=== PATIENT | male | born 1940 | race Caucasian/White ===

== ENCOUNTER 2018-11-22 09:40 | Emergency (ER) | payer MEDICARE ==
[~2018-11-22] VITALS: Ht 175.3 cm; Wt 121.6 kg
[2018-11-22] MEDS ORDERED: NITRO-DUR1 EAC1 TD (10:07)
[2018-11-22] MEDS ORDERED: FUROSEMIDE20 MG PO (10:37)
[2018-11-22] MEDS ORDERED: HYDROCHLOROTH12.5 M1 PO (10:37)
[2018-11-22] MEDS ORDERED: ASPIRIN81 MG PO (10:37)
[2018-11-22] MEDS ORDERED: AMLODIPINE BESY10 MG PO (10:38)
[2018-11-22] MEDS ORDERED: ATORVASTATIN CA40 MG PO (10:38)
[2018-11-22] MEDS ORDERED: COZAAR100 MG PO (10:38)
[2018-11-22] MEDS ORDERED: SODIUM CHLORI1000 MG MISC (10:39)
[2018-11-22] MEDS ORDERED: OIL OF OREGAN1500 MG PO (10:40)
[2018-11-22] MEDS ORDERED: CARVEDILOL25 MG PO (10:40)
[2018-11-22] MEDS ORDERED: CARBATROL200 MG PO (10:40)
--- NOTE | 2018-11-22 21:34 | EKG ---
[facility] [address] [facility] [place] [address] Signed Normal sinus rhythm Possible Left atrial enlargement Left ventricular hypertrophy with repolarization abnormality Anterolateral infarct , age undetermined Abnormal ECG No previous ECGs available Confirmed by CARRIE ROJAS MD ([id number]) on 11/22/2018 9:34:27 PM Electronically Signed By: CARRIE ROJAS MD 11/22/18 2134 PATIENT NAME: GINOOTIS RUBA Electrocardiogram DATE OF : 40 PHYSICIAN: CARRIE ROJAS MD REPORT #: [id number] REPORT IS CONFIDENTIAL AND NOT TO BE RELEASED WITHOUT AUTHORIZATION
== END 2018-11-22 12:40 | disposition home or self-care (01) ==
LOC: ED 09:40
DX: I50.9 Heart failure, unspecified (principal); E11.9 Type 2 diabetes mellitus without complications; Z79.82 Long term (current) use of aspirin; Z79.899 Other long term (current) drug therapy
CPT/HCPCS: 36415; 71045; 80053; 83880; 84484; 85025; 85379; 85610; 93005; 93010; 96374; 99285-25; J1940